=== PATIENT | male | born 1995 | race Hispanic/Latino ===

== ENCOUNTER → 2024-09-02 | Outpatient (CLI) | payer OTHER ==
--- NOTE | 2024-09-02 16:12 | HMCIMG ---
CT UPPER EXT W/O CONTRAST HISTORY: Trauma COMPARISON: None TECHNIQUE: Multiple sequential axial images of the right breast were obtained including post processing sagittal and coronal reconstruction images. Patient was not given contrast through intravenous route. FINDINGS: There is no acute displaced fracture or dislocation. Nondisplaced fracture cannot be completely excluded. Soft tissue swelling is seen. Degenerative changes are seen. No dislocation is seen. Evaluations for ligaments and tendons are limited with CT. There is 3 mm radiopaque density noted at the ventral aspect of the left wrist. Foreign body cannot be excluded. IMPRESSION: 1. Findings as described above. CT was performed with one or more following dose reduction techniques: automated exposure control, adjustment of the mA and kv according to patient's size, or use of a iterative reconstruction technique.
== END | disposition home or self-care (01) ==
LOC: RAH 13:58
PROVIDERS: ATTEND Family Medicine
DX: S60.211A Contusion of right wrist, initial encounter (principal); M65.4 Radial styloid tenosynovitis [de Quervain]; M19.031 Primary osteoarthritis, right wrist; X58.XXXA Exposure to other specified factors, initial encounter; Y93.89 Activity, other specified; Y92.89 Other specified places as the place of occurrence of the external cause; Y99.8 Other external cause status
CPT/HCPCS: 73200